=== PATIENT | male | born 1990 | race Caucasian/White ===

== ENCOUNTER 2018-02-11 03:02 | Emergency (ER) | payer OTHER, SELFPAY ==
[2018-02-11 03:02] VITALS: BP 155/97; PULSE 71; RESP 18; TEMP 35.7; O2SAT 97; BMI 47.4
--- NOTE | 2018-02-11 03:46 | ED.VISSUMM ---
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 No loss of consciousness. Mild headache. No visual change. No nausea vomiting. No anticoagulation medications. Denies any neck or back pain. No medicines taken. Similar symptoms in the past less severe. Also happened at work. Physical Examination: General: Alert and oriented ?3, no acute distress HEENT: Normocephalic, 2 cm area scalp hematoma right parietal, no laceration or bleeding. No depression. No hemotympanum.. Moist mucosa membranes Neck: supple, nontender. No midline tenderness. Cardiovascular: Regular rate and rhythm, no murmurs Respiratory: Normal breath sounds, symmetric, no distress Abdomen: Soft, nontender, nondistended Extremities: Nontender, no edema, pulses intact ?4 Neuro: no focal neurological deficits. Cranial nerves II through XII intact. Test Results: [] Emergency Department Course and Treatment: Patient vitals stable, no focal neurological deficits. Nexus CT head criteria negative. Discussed concussion with precautions. Tylenol started. Work restrictions will be given. Follow-up with [facility]. All questions were answered. Treatment Plan: [] Disposition: Discharge Impression: 1. Concussion without loss of consciousness 2. Scalp hematoma This note was generated with Retewi dictation software. It may contain incorrect words, spelling, and punctuation that were not noted in review of the chart prior to signing ED Disposition - Plan for ED Patient: Disposition: Home or Assisted Living Chief Complaint: Head Injury Diagnosis: Concussion without loss of consciousness, initial encounter, Scalp hematoma Instructions: ED Concussion, ED Contusion Scalp Referrals: Zeyad Osman MD [Primary Care Provider] - [facility] [GROUP OF PHYSICIANS] - 3-5 Days Additional Instructions: 1 g Tylenol every 6 hours as needed.
--- NOTE | 2018-02-11 03:50 | ED.DCSUM_ITS ---
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 No loss of consciousness. Mild headache. No visual change. No nausea vomiting. No anticoagulation medications. Denies any neck or back pain. No medicines taken. Similar symptoms in the past less severe. Also happened at work. Physical Examination: General: Alert and oriented ?3, no acute distress HEENT: Normocephalic, 2 cm area scalp hematoma right parietal, no laceration or bleeding. No depression. No hemotympanum.. Moist mucosa membranes Neck: supple, nontender. No midline tenderness. Cardiovascular: Regular rate and rhythm, no murmurs Respiratory: Normal breath sounds, symmetric, no distress Abdomen: Soft, nontender, nondistended Extremities: Nontender, no edema, pulses intact ?4 Neuro: no focal neurological deficits. Cranial nerves II through XII intact. Test Results: [] Emergency Department Course and Treatment: Patient vitals stable, no focal neurological deficits. Nexus CT head criteria negative. Discussed concussion with precautions. Tylenol started. Work restrictions will be given. Follow- up with [facility]. All questions were answered. Treatment Plan: [] Disposition: Discharge Impression: 1. Concussion without loss of consciousness 2. Scalp hematoma This note was generated with SpectraLinear dictation software. It may contain incorrect words, spelling, and punctuation that were not noted in review of the chart prior to signing ED Disposition - Plan for ED Patient: Disposition: Home or Assisted Living Chief Complaint: Head Injury Diagnosis: Concussion without loss of consciousness, initial encounter, Scalp hematoma Instructions: ED Concussion, ED Contusion Scalp Referrals: Zeyad Osman MD [Primary Care Provider] - [facility] [GROUP OF PHYSICIANS] - 3-5 Days Additional Instructions: 1 g Tylenol every 6 hours as needed.
[2018-02-11] MEDS: Acetaminophen 500 MG Tablet 1000 MG PO (03:57)
[2018-02-11 03:58] VITALS: RESP 16
== END 2018-02-11 03:58 | disposition home or self-care (01) ==
LOC: ED 03:56
PROVIDERS: Emergency Provider Emergency Medicine; Family Provider Family Medicine; PCP Family Medicine
DX: S06.0X0A Concussion without loss of consciousness, initial encounter (principal); S00.03XA Contusion of scalp, initial encounter; R40.2410 Glasgow coma scale score 13-15, unspecified time; W22.8XXA Striking against or struck by other objects, initial encounter; Y93.9 Activity, unspecified; Y92.9 Unspecified place or not applicable; J45.909 Unspecified asthma, uncomplicated
CPT/HCPCS: 99283

== ENCOUNTER 2019-02-13 15:27 | Emergency (ER) | payer BC, SELFPAY ==
[2019-02-13 15:28] VITALS: BP 168/80; PULSE 104; RESP 16; TEMP 36.3; O2SAT 98; BMI 49.8
--- NOTE | 2019-02-13 15:44 | ED.DCSUM_ITS ---
- ER Visit Summary Date of Service: 02/13/19 Chief Complaint: Chest pain History of Present Illness: The patient is a 28 M who presents for chest pain for 2 days. Patient is having intermittent episodes of left-sided sharp chest pain that radiates into the left proximal shoulder. 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 Episodes will last 6-7 minutes and then subside. Patient has noticed when he is at rest he can feel his heart beating in his chest. He is unsure if it feels like at fast rate or not. He denies fever, shortness of breath, abdominal pain, nausea or vomiting, back pain, or other complaints. He has no history of diabetes, hypertension, hypercholesterolemia. He does have family history of factor V Leiden (mother). No tobacco or alcohol use. Patient denies any drug use, including cocaine or any stimulants. Physical Examination: Vital signs: afebrile, hemodynamically stable, no hypoxia on room air General: well nourished, well developed, in no distress, BMI of 49 Skin: warm, dry, no rash, no pallor HEENT: normocephalic and atraumatic; PERRL, EOMI, moist mucous membranes Cardiovascular: Mildly tachycardic rate and rhythm without murmurs, no peripheral edema, 2+ pulses all distal extremities Respiratory: No increased work of breathing, lungs are clear to auscultation bilaterally, no rales, rhonchi or wheezing Abdominal: Abdomen is soft, nontender with normoactive bowel sounds, no guarding or rebound, no masses MSK: Moves all extremities, no deformities, normal strength Neuro: Awake and alert, oriented ?4. No facial droop, sensation and motor function intact and symmetric Test Results: Abnormal Lab Results 02/13/19 02/13/19 02/13/19 15:50 15:50 15:50 WBC 9.2 RBC 5.60 Hgb 15.6 Hct 46.3 MCV 82.7 MCH 27.9 MCHC 33.7 RDW 13.5 RDW Differential 40.8 Plt Count 327 MPV 9.0 Immature Gran % (Auto) 0.200 Neut % (Auto) 66.4 Lymph % (Auto) 22.5 Dickinson % (Auto) 7.4 Eos % (Auto) 3.3 Baso % (Auto) 0.2 Absolute Neuts (auto) 6.1 Absolute Lymphs (auto) 2.07 Total Counted Not Reportable D-Dimer Quant (PE/DVT) 0.37 Sodium 137 Potassium 4.0 Chloride 106 Carbon Dioxide 27.0 Anion Gap 4 L BUN 15 Creatinine 0.69 L Estim Creat Clear Calc 162.23 Est GFR (MDRD) Af Amer 177 Est GFR (MDRD) Non-Af 147 BUN/Creatinine Ratio 21.7 H Glucose 96 Calcium 9.1 Troponin I < 0.015 TSH 3.05 Medications Given Discontinued Medications Aspirin (Aspirin, Baby) 324 mg PO X1 STA Stop: 02/13/19 15:42 Last Admin: 02/13/19 15:49 Dose: 324 mg Clinical Impression(s) from Imaging Studies Chest X-Ray 02/13/19 16:41 IMPRESSION: No acute thoracic pathology. Electronically Signed: Tyree Zamudio, at 16:58 EDT Tel , Service support , Emergency Department Course and Treatment: Patient was tachycardic upon initial presentation and does have a family history of factor V Leiden. Thus d-dimer was included in his workup. D-dimer was within normal limits. EKG showed sinus rhythm without any ischemic changes or ectopy. Labs were unremarkable, including TSH within normal limits and negative troponin. On reevaluation patient was asymptomatic and had no chest pain while in the emergency department. Patient was reassured that no life-threatening causes of his chest pain were noted on workup or suspected. Patient is to use [id number] anti-inflammatory medications for any further discomfort. He was discharged home. Treatment Plan: [] Disposition: [] Impression: atypical chest pain This note was generated with Adteractive dictation software. It may contain incorrect words, spelling, and punctuation that were not noted in review of the chart prior to signing ED Disposition - Plan for ED Patient: Disposition: Home or Assisted Living Instructions: ED Chest Pain Atypical Unkn Cause, ED Palpitations Referrals: Zeyad Osman MD [Primary Care Provider] - 3-5 Days Additional Instructions: Use acetaminophen, ibuprofen or naproxen as needed for any further chest discomfort. Please follow-up with your primary care doctor within the week for another evaluation, especially if you continue to have the symptoms. If you have any worsening of your condition or any new concerning symptoms, please return immediately to the emergency department for another evaluation.
[2019-02-13 15:48] VITALS: O2SAT 98
[2019-02-13] MEDS: Aspirin 81 MG TAB.CHEW 324 MG PO (15:49)
--- NOTE | 2019-02-13 15:50 | ED.RN ---
NO OLD EKG
[2019-02-13 16:03] LABS: Absolute Lymphocyte Count 2.07 X10^3/ul (0.83-4.51); Absolute Neutrophil Count 6.1 X10^3/uL (2.0-7.7); Basophil# 0.02 X10^3/uL; Basophil% 0.2 % (0-1); Eosinophils% 3.3 % (0-5); Hematocrit 46.3 % (40-54); Hemoglobin 15.6 g/dl (13.0-16.5); Lymphocyte # 2.07 X10^3/ul (4.0); Lymphocyte % 22.5 % (19-41); Mean Corp Hgb Conc 33.7 g/gl (32-36); Mean Corpuscular Hgb 27.9 pg (27.0-32.0); Mean Corpuscular Volume 82.7 fL (80-94); Monocyte# 0.68 X10^3/uL; Monocyte% 7.4 % (0-10); Neutrophil # 6.13 X10^3/uL (2.7-7.7); Neutrophil % 66.4 % (47-70); Platelet Count 327 K/mm3 (150-450); RBC Distribution Width CV 13.5 % (11.6-14.6); RBC Distribution Width SD 40.8 fl (35.1-43.9); White Blood Count 9.2 K/mm3 (4.4-11.0)
[2019-02-13 16:24] LABS: Anion Gap 4 (5-15); BUN 15 mg/dL (7-18); BUN/Creat Ratio 21.7 RATIO (10-20); Calcium,Total 9.1 mg/dL (8.5-10.1); Chloride 106 mmol/L (98-107); Creatinine, Serum 0.69 mg/dL (0.70-1.30); EST Glomerular Filtration Rate 147 mL/min (>60); Est Glom Filt Rate - Afr Amer 177 mL/min (>60); Estimated Creatinine Clearance 162.23 ml/min; Glucose 96 mg/dL (74-106); Sodium Level 137 mmol/L (136-145); Thyroid Stim Hormone (TSH) 3.05 uIU/mL (0.358-3.74)
[2019-02-13 16:29] LABS: POSITIVE COUNT NO; POSITIVE DIFFERENTIAL NO; POSITIVE MORPHOLOGY NO
--- NOTE | 2019-02-13 16:41 | RAD_ITS ---
STUDY: X-RAY CHEST REASON FOR EXAM: Male, 28 years old. Chest pain TECHNIQUE: Frontal and lateral views of the chest COMPARISON: None. FINDINGS: The lungs are clear. There are no pleural effusions. There is no pneumothorax. The heart is normal in size. The visualized osseous structures are within normal limits. RAD/Chest PA and Lateral IMPRESSION: No acute thoracic pathology. Electronically Signed: Tyree Zamudio, at 16:58 EDT Tel , Service support ,
[2019-02-13 17:01] LABS: D-Dimer Quantitative (DVT/PE) 0.37 FEU/ug/m (0.27-0.49)
[2019-02-13 17:54] VITALS: BP 138/78; PULSE 89; RESP 16; O2SAT 98
== END 2019-02-13 17:54 | disposition home or self-care (01) ==
PROVIDERS: Emergency Provider Emergency Medicine; Family Provider Family Medicine; PCP Family Medicine
DX: R07.89 Other chest pain (principal); J45.909 Unspecified asthma, uncomplicated
CPT/HCPCS: 71046; 80048; 84443; 84484; 85025; 85379; 93005; 99285; A4216

== ENCOUNTER → 2019-10-11 15:08 | Outpatient (CLI) | payer BC, SELFPAY ==
--- NOTE | 2019-10-11 15:11 | RAD_ITS ---
HISTORY: left ankle pain, fell down steps 3 weeks ago ADDITIONAL HISTORY: None provided. TECHNIQUE: Left ankle 3 views Number of images including paperwork: 3 COMPARISON: None FINDINGS: BONES: No acute fracture. Calcaneal enthesophyte JOINTS: No subluxation. SOFT TISSUES: No distinct foreign body. Soft tissue swelling is noted about the ankle. RAD/Ankle min 3 Views IMPRESSION: No acute osseous abnormality. at 2252 Reported and signed by: Gina Ramirez MD Electronically Signed: Gina Ramirez MD at 22:52 EST Tel , Service support ,
== END ==
LOC: MTRAD 15:10
PROVIDERS: Family Provider Family Medicine; PCP Family Medicine; Referring Provider Family Medicine; Visit Provider Family Medicine
DX: S93.402A Sprain of unspecified ligament of left ankle, initial encounter (principal)
CPT/HCPCS: 73610

== ENCOUNTER 2020-01-22 15:30 | Outpatient (RCR) | payer BC, SELFPAY ==
--- NOTE | 2019-10-18 08:27 | HP.PTEVAL_ITS ---
Patient's Visit Information ELIAN YIP is a 29 year old M referred to Physical Therapy by Yeyo Lane MD with a diagnosis of L ankle sprain. Date of Evaluation: 10/17/19 Physical Therapist: Daryn Bazzi PT, ATC - Visit Plan Frequency: 2-3x /Week Duration: 4-6 Weeks Plan: L ankle stretching and strengthening, balance and proprio, nustep, and HEP - Subjective Findings: Pt reports he has had L ankle pain for approximately one month. Pt reports his pain had an insidious onset in nature. Pt notes he has had xrays and blood tests that all returned normal with no adverse findings. Pt reports he just woke up one morning and was barely able to bear weight on his L ankle secondary to pain. Pt denies tingling or numbness in his L LE. Pt reports his pain is minimal most of the time until he turns the wrong way on it which results in a severe jolt. No sleep difficulty at this time secondary to pain, however pt does reports ankle is very stiff upon awakening in the morning. 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 Pt currently notes 0/10 pain at rest, but notes pain elevates to 10/10 at worst. - Pain L ankle Pain Intensity (Out of 10): 0 Pain Intensity Range: 10 - Objective Neuro: B LE sensation is WNL to light touch. Palpation: Pt is very sore on the L calaneal fibular ligament. No obvious deformity. ROM: R ankle DF= 10, PF= 60 degrees, L ankle DF= 10, PF= 45 degrees. MMT: L ankle DF and eversion 4/5 and painful. All other LE MMT 5/5 throughout. Gait: Pt ambulates with severe pes planus and ER of feet - Goals Goal 1:: Decrease R ankle pain x 50 % to aid with sleep Goal Time Frame: 4-6 Weeks Goal 2:: ncrease R ankle strength x 1 grade to aid with RTW without limitation Goal Time Frame: 4-6 Weeks Goal 3:: I with HEP Goal Time Frame: 4-6 Weeks - Rehabilitation Potential Physical Therapy Diagnosis: Pt has L ankle pain and weakness secondary to L ankle sprain Rehabilitation Potential: Good - Anticipated Interventions Patient/Client Instruction: Educate patient on: Condition, Plan of Care For the Purpose of:: To improve self management Therapeutic Exercise to Include: Strength training, Endurance training, Flexibilty training, Passive ROM, Active ROM, Dynamic Lumbar Stabilization For the Purpose of:: To decrease pain, To increase ROM, To improve muscle performance and motor function Cryotherapy (ice pack, ice massage): Yes For the Purpose of:: To decrease pain Thank you for the opportunity to evaluate your patient. For Medicare and Medicare HMO plans, please review the plan of care and approve it. It will need to be FAXED BACK to us at [phone] for Medicare purposes. For Medicare only, by signing this I certify the plan of care. Please let me know if there are questions or concerns regarding this plan of care. Physician Signature: Date:
--- NOTE | 2019-11-10 16:02 | HP.PTREVAL ---
Yeyo Lane MD, It has been my pleasure to treat ELIAN YIP over the last 8 visits for L ankle sprain. Please see the progress note below for an update on the physical therapy plan of care! Subjective: Pt reports he is still in pain at various times Objective/Function: L ankle pain ranges from 0-5/10. L ankle MMT: 4/5 throughout. L ankle ROM: DF= 12 degrees. Pt is progressing well woward Rx goals Plan Plan: Cont to progress strength and balance Goals Goal 1:: Decrease R ankle pain x 50 % to aid with sleep Goal Time Frame: 4-6 Weeks Goal Progress: Goal Met Goal 2:: ncrease R ankle strength x 1 grade to aid with RTW without limitation Goal Time Frame: 4-6 Weeks Goal Progress: Progressing Goal 3:: I with HEP Goal Time Frame: 4-6 Weeks Goal Progress: Progressing Anticipated Interventions Patient/Client Instruction: Educate patient on: Condition, Plan of Care For the Purpose of:: To improve self management Therapeutic Exercise to Include: Strength training, Endurance training, Flexibilty training, Passive ROM, Active ROM, Dynamic Lumbar Stabilization For the Purpose of:: To decrease pain, To increase ROM, To improve muscle performance and motor function Cryotherapy (ice pack, ice massage): Yes For the Purpose of:: To decrease pain Please do not hesitate to contact me at [phone] by phone or if you have questions or concerns regarding this new plan of care! Sincerely, Daryn Bazzi, PT, ATC
--- NOTE | 2019-12-07 16:31 | HP.PTDCSUM ---
HP - PT D/C Summary It has been my pleasure to treat ELIAN YIP under orders from Yeyo Lane MD, for the diagnosis of L ankle sprain for a total of 12 visit(s). Discharge Date: Please see the following information for a summary of their discharge status. - Subjective Subjective: I would feel so much better if I could just let it rest. - Pain L ankle Pain Intensity (Out of 10): 5 - Overall Improvement % Improvement: 75 - Objective Objective/Function: L ankle pain is 4/10 this date. L ankle MMT is 5/5 throughout with the exception of inversion which is 4-/5 and painful. Pt is I with HEP. R goals achieved - Goals Goal 1:: Decrease R ankle pain x 50 % to aid with sleep Goal Progress: Goal Met Goal 2:: ncrease R ankle strength x 1 grade to aid with RTW without limitation Goal Progress: Goal Met Goal 3:: I with HEP Goal Progress: Goal Met - Plan Plan: Discharge - D/C Information If there are questions or concerns regarding this patient's physical therapy, please feel free to call me at [phone]. Thank you for the referral of this patient. Sincerely, Daryn Bazzi, PT, ATC
--- NOTE | 2020-01-22 15:51 | HP.PTDCSUM ---
It has been my pleasure to treat ELIAN YIP referred by Yeyo Lane MD, with the diagnosis of L ankle sprain for a total of 19 visit(s). Discharge Date: Please see the following information for a summary of their discharge status. Subjective: Pt feels like he has plateaued and is not getting better L ankle Pain Intensity (Out of 10): 4 % Improvement: 80 Objective/Function: L ankle pain 4/10. L ankle MMT 5/5 througout with exception to inversion 4/5. Pt is I with HEP. Rx goals achieved Goal 1:: Decrease R ankle pain x 50 % to aid with sleep Goal Progress: Goal Met Goal 2:: ncrease R ankle strength x 1 grade to aid with RTW without limitation Goal Progress: Goal Met Goal 3:: I with HEP Goal Progress: Goal Met Plan: Discharge, RTD If there are questions or concerns regarding this patient's physical therapy, please feel free to call me at [phone]. Thank you for the referral of this patient. Sincerely, Daryn Bazzi, PT, ATC
== END 2020-01-22 19:00 | disposition home or self-care (01) ==
LOC: PT 15:30
PROVIDERS: Family Provider Family Medicine; PCP Family Medicine; Referring Provider Family Medicine; Visit Provider Family Medicine
DX: S93.402D Sprain of unspecified ligament of left ankle, subsequent encounter (principal)
CPT/HCPCS: 97110; 97161; 97164; 97530; 97763

== ENCOUNTER 2023-02-28 09:20 | Emergency (ER) | payer BC, SELFPAY ==
[2023-02-28 09:21] VITALS: BP 167/114; PULSE 71; RESP 20; TEMP 36.6; O2SAT 100; BMI 53.1
--- NOTE | 2023-02-28 10:03 | EX.ED.DYSGE1 ---
HPI History of Present Illness Chief Complaint: Dental Informant: patient Onset/Context/Timing Onset: Days (4 days) Context: Gradual Onset Current Severity: Mild Maximum Severity: Moderate Narrative Narrative: Patient presents with 4-day history of right upper dental pain. He states the tooth been broken in the past. He has an appointment to see his dentist tomorrow and they are supposed to call in an antibiotic for him, however he states the pharmacy told him it was never called in. He denies fever or chills. He has been taking ibuprofen for pain. PFSH PFSH Medical History no medical history no medical history Home Medications naproxen 500 mg tablet (Naprosyn) 500 mg PO BID PRN pain #20 tabs 02/28/23 [Rx Last Taken Unknown] penicillin V potassium 500 mg tablet 500 mg PO 4X/DAY #40 tabs 02/28/23 [Rx Last Taken Unknown] Allergy/AdvReac Type Severity Reaction Status Date / Time No Known Allergies Allergy Verified 02/28/23 09:22 Surgical History no surgical history Social History Smoking Status: Never smoker ROS ROS ED Constitutional Constitutional ED: Denies chills or fever(s) Eyes Eyes: Denies change in vision or discharge from eye(s) ENT ENT ED: Reports other Details: Right upper dental pain ; Denies discharge from eye(s), rhinorrhea or sore throat Cardiovascular Cardiovascular: Denies chest pain Respiratory/Chest Respiratory/Chest: Denies cough Gastrointestinal Gastrointestinal: Denies abdominal pain, nausea or vomiting Musculoskeletal Musculoskeletal: Denies back pain or extremity pain Integumentary Denies Abrasions or rash Neurologic Neurologic: Denies headache(s) or weakness Allergic/Immunologic Allergic/Immunologic ED: Denies lip swelling or urticaria EXAM Physical Exam Const Vital Signs: 02/28/23 09:21 Temperature 97.9 F Temperature Source Temporal Pulse Rate 71 Respiratory Rate 20 H Blood Pressure 167/114 H Blood Pressure Mean 131 Pulse Ox 100 Oxygen Delivery Method Room Air Positive well nourished and well developed General Appearance ED: well developed HEENT Reports normocephalic and head/scalp atraumatic HEENT Narrative: No facial edema or erythema noted. Posterior pharynx exam is normal. Patient is tolerating secretions well and has a strong voice. The right maxillary first molar is tender with mild surrounding edema. Eyes PERRL and EOMs intact bilaterally Neck supple Chest Wall inspection of chest normal and palpation of chest normal Resp normal respiratory effort and clear to auscultation bilaterally Cardio regular rate and regular rhythm GI normal to inspection, nondistended, normoactive bowel sounds Palpation: soft Back/Spine no CVA tenderness Extremity normal to inspection Neuro oriented x3 and no sensory deficits noted Sensorium / Orientation: alert Motor Exam: strength 5/5 throughout Psych mental status grossly normal Skin no rashes or lesions noted MDM MDM MDM Narrative Medical decision making narrative: Patient be treated with a course of Pen-Vee K. I will write him prescription strength naproxen and advised him he cannot take ibuprofen or Aleve [id number] in addition to this. He will follow-up with his dentist tomorrow as scheduled. Discharge Plan Triage Chief Complaint: Dental ED Provider: Sadie Flores Dx/Rx/DC Orders Clinical Impression: Odontalgia Instructions: ED Dental Pain Prescriptions: New naproxen [Naprosyn] 500 mg tablet 500 mg PO BID PRN (Reason: pain) Qty: 20 0RF penicillin V potassium 500 mg tablet 500 mg PO 4X/DAY Qty: 40 0RF Primary Care Provider: Zeyad Osman Referrals: Zeyad Osman MD [Primary Care Provider] - Activity Restrictions/Additional Instructions: Follow-up with your dentist tomorrow as scheduled. Disposition Disposition: Home, Self Care
[2023-02-28 10:10] VITALS: RESP 16
[2023-02-28] MEDS: Penicillin Vk 250 MG Tablet 500 MG PO (10:11)
== END 2023-02-28 10:11 | disposition home or self-care (01) ==
PROVIDERS: Emergency Provider Emergency Medicine; PCP Family Medicine; Visit Provider Emergency Medicine
DX: K08.89 Other specified disorders of teeth and supporting structures (principal)
CPT/HCPCS: 99282

== ENCOUNTER 2025-06-05 14:23 | Emergency (ER) | payer OTHER, BC, SELFPAY ==
[2025-06-05 14:24] VITALS: BP 164/78; PULSE 78; RESP 16; TEMP 36.9; O2SAT 98; BMI 58.2
--- NOTE | 2025-06-05 14:41 | ED.VIS.LOWEX ---
HPI History of Present Illness HPI Narrative: Patient presents with laceration to his left lower leg that occurred today while he was at work. 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 Patient noted bleeding immediately. Patient denies any paresthesias or weakness. Patient was ambulatory at the scene. Patient describes his pain as a dull ache. Patient states nothing makes it worse and nothing makes it better. Patient denies any other injuries. Patient states his last tetanus was within 5 years. Chief Complaint: Laceration Informant: patient Occured/Mechanism Mechanism/Context: Yes blunt trauma Onset/Context/Timing Onset: Today Context: Sudden Onset Timing: Continuous Quality of Pain: Dull Location: Left lower leg Worsened by: Nothing Relieved by: Nothing Associated Symptoms Associated Symptoms: Negative for Parasthesia, Weakness or Loss of Funtion Narrative Tetanus Immunization: <5 years PFSH PFS Medical History no medical history no medical history Home Medications ?Medication ?Instructions ?Recorded ?Last Taken ?Type naproxen 500 mg tablet (Naprosyn) 500 mg PO BID PRN pain #20 tabs 02/28/23 Unknown Rx penicillin V potassium 500 mg 500 mg PO 4X/DAY #40 tabs 02/28/23 Unknown Rx tablet Allergy/AdvReac Type Severity Reaction Status Date / Time No Known Allergies Allergy Verified 06/05/25 14:23 Surgical History no surgical history no surgical history Social History Smoking Status: Never smoker ROS ROS ED Constitutional Constitutional ED: Denies chills or fever(s) Eyes Eyes: Denies blurry vision or change in vision ENT ENT ED: Denies rhinorrhea or sore throat Cardiovascular Cardiovascular: Denies chest pain or palpitations Respiratory/Chest Respiratory/Chest: Denies cough or dyspnea Gastrointestinal Gastrointestinal: Denies nausea or vomiting Genitourinary Genitourinary ED: Denies dysuria or hematuria Musculoskeletal Musculoskeletal: Denies back pain or neck pain Integumentary Denies abscess or rash Neurologic Neurologic: Denies headache(s) or weakness Allergic/Immunologic Allergic/Immunologic ED: Denies mouth swelling or urticaria EXAM Physical Exam Const Vital Signs: 06/05/25 14:24 Temperature 98.4 F Temperature Source Temporal Pulse Rate 78 Respiratory Rate 16 Blood Pressure 164/78 H Blood Pressure Mean 106 Pulse Ox 98 Oxygen Delivery Method Room Air Positive well nourished and well developed Constitutional Narrative: BMI is 58.2. General Appearance ED: well developed and NAD HEENT Reports moist mucous membranes Neck full ROM and supple Extremity Extremity Narrative: There is a 5 cm full-thickness V-shaped laceration over the anterior aspect of the left lower leg. There is moderate gapping of the wound margins. There are no foreign bodies noted. There is no exposure of the tendons or fascia. Neuro oriented x3, CN's II-XII intact bilaterally, moves all extremities and no sensory deficits noted Sensorium / Orientation: alert Motor Exam: strength 5/5 throughout Psych mental status grossly normal MDM MDM MDM Narrative Medical decision making narrative: The wound was cleaned and irrigated with copious amounts of normal saline. The wound was anesthetized with 1% plain lidocaine locally. The wound was closed with 4 simple interrupted #4-0 Vicryl subcutaneous sutures and 6 simple interrupted #4-0 nylon sutures under sterile technique. Patient tolerated the procedure well. Bacitracin dressing was applied. Patient was instructed to keep the wound clean and dry. Patient was instructed to follow-up with his primary care physician in 7 days for wound recheck and suture removal. Patient understood and was agreeable with the plan. All questions were answered. Procedures Lacerations Left lower leg: Length: 5 cm Depth: Sub Q Shape: Linear (V-shaped) Prep: Sterile Conditions and Chlorhexadine Laceration repair: Irrigated, Lidocaine, Local, Skin sutures and Subcutaneous sutures Irrigated (ml): 100 Suture Information: Vicryl (4 simple interrupted #4-0 subcutaneous Vicryl sutures), Ethilon (6 simple interrupted #4-0 Ethilon sutures), Simple and 4-0 Discharge Plan Triage Chief Complaint: Laceration ED Provider: Tyler Workman Dx/Rx/DC Orders Clinical Impression: Laceration of left lower leg, Body mass index (BMI) of 50-59.9 in adult Prescriptions: No Action naproxen [Naprosyn] 500 mg tablet 500 mg PO BID PRN (Reason: pain) Qty: 20 0RF penicillin V potassium 500 mg tablet 500 mg PO 4X/DAY Qty: 40 0RF Primary Care Provider: Rafa Osman Referrals: Rafa Osman MD [Primary Care Provider] - 7 Days for suture removal Print Language: Irish Disposition Disposition: Home, Self Care
[2025-06-05] MEDS: Lidocaine 1% (20 ml mdv) 20 ML Vial INFILT (15:59)
[2025-06-05 16:05] VITALS: BP 135/74; PULSE 87; RESP 16; TEMP 36.6; O2SAT 100
== END 2025-06-05 16:06 | disposition home or self-care (01) ==
PROVIDERS: Emergency Provider Emergency Medicine; PCP Family Medicine; Visit Provider Emergency Medicine
DX: S81.812A Laceration without foreign body, left lower leg, initial encounter (principal); W19.XXXA Unspecified fall, initial encounter
CPT/HCPCS: 12002; 99285